=== PATIENT | male | born 1965 | race Caucasian/White ===

== ENCOUNTER 2016-11-30 13:49 | Outpatient (RCR) | payer OTHER ==
--- OUTSIDE RECORDS SUMMARY | 2016-09-02 10:05 | XMS REPORT ---
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
== END 2016-12-01 | disposition home or self-care (01) ==
LOC: CR 13:49
PROVIDERS: ATTEND Internal Medicine Cardiovascular Disease
DX: Z51.89 Encounter for other specified aftercare (principal); I25.2 Old myocardial infarction
CPT/HCPCS: 93798

== ENCOUNTER 2016-12-04 10:47 | Outpatient (RCR) | payer OTHER | END 2016-12-04 11:00 | disposition home or self-care (01) | LOC: CR 10:47 | PROVIDERS: ATTEND Internal Medicine Cardiovascular Disease | DX: Z48.812 Encounter for surgical aftercare following surgery on the circulatory system (principal); I25.2 Old myocardial infarction; Z95.5 Presence of coronary angioplasty implant and graft | CPT/HCPCS: 93798 ==